=== PATIENT | female | born 1965 | race African-American/Black ===

== ENCOUNTER 2018-05-18 07:37 | Inpatient (IN) | payer BC, OTHER ==
[2018-05-12 12:04] VITALS: BMI 39.2
--- NOTE | 2018-05-14 14:59 | HP ---
Admitting History and Physical - Admission Chief Complaint: left TKR pain x years History of Present Illness: 53 year old female presents today in regard to her left knee. Longstanding history of left knee osteoarthritis. Patient is status post a left total knee replacement. She complains of pain, limited ROM, difficulty ambulating and difficulty with ADLs. Patient has failed conservative treatment measures including PO medication, activity modification, injections and exercise program. Loosening of the prosthesis was confirmed via diagnostic testing. At this point, patient consents to proceed with revision left total knee arthroplasty. History Source: Patient - Past Medical History Cardiovascular: Yes: HTN ...LMP Comment: 2011 - Past Surgical History Additional Past Surgical History: See written history & physical. - Smoking History Smoking history: Never smoked Have you smoked in the past 12 months: No - Alcohol/Substance Use Hx Alcohol Use: No Home Medications - Allergies Allergies/Adverse Reactions: Allergies Allergy/AdvReac Type Severity Reaction Status Date / Time morphine AdvReac Severe Difficulty Verified 06/10/16 06:49 Breathing Latex, Natural Rubber AdvReac Intermediate Rash Verified 06/10/16 06:29 - Home Medications Home Medications: Ambulatory Orders Amlodipine Besylate 10 mg PO DAILY 05/20/16 Diclofenac Sodium [Diclofenac Sodium ER] 100 mg PO DAILY 05/12/18 Hydrocodone/Acetaminophen [Hydrocodone-Acetamin 5-300 mg] 1 each PO ASDIR PRN Review of Systems - Review of Systems Musculoskeletal: reports: Decreased ROM (left knee), Joint Pain (left knee) Physical Examination Constitutional: Yes: Well Nourished, No Distress Eyes: Yes: Conjunctiva Clear HENT: Yes: Atraumatic, Normocephalic Neck: Yes: Supple Cardiovascular: Yes: Regular Rate and Rhythm Respiratory: Yes: Regular Gastrointestinal: Yes: Soft ...Rectal Exam: Yes: Deferred Musculoskeletal: Yes: Joint Stiffness (left knee), Joint Swelling (left knee) Assessment/Plan 53 year old female presents today in regard to her left knee. Longstanding history of left knee osteoarthritis. Patient is status post a left total knee replacement. She complains of pain, limited ROM, difficulty ambulating and difficulty with ADLs. Patient has failed conservative treatment measures including PO medication, activity modification, injections and exercise program. Loosening of the prosthesis was confirmed via diagnostic testing. At this point, patient consents to proceed with revision left total knee arthroplasty. Pros, cons, risks, benefits and alternatives of a revision left total knee arthroplasty was discussed with the patient. Patient confirms her understanding and consents to proceed with a revision left total knee arthroplasty.
[2018-05-18] MEDS ORDERED: TRANEXAMIC ACID 1000 MG/10 ML VIAL IVPUSH ONE (10:30)
[2018-05-18] MEDS ORDERED: CEFAZOLIN 2 GM in DEXTROSE 5%-WATER - 50 ML IVPB ONE (10:30)
[2018-05-18] MEDS ORDERED: ROPIVICAINE 0.2%/MORPH PF/KETOROLAC - 51ML DISP.SYRINGE IA ONE ×4 (10:30→16:05)
[2018-05-18] MEDS ORDERED: MIDAZOLAM HCL 2 MG/2 ML SINGLE DOSE VIAL ONE ×4 (10:31→15:24)
[2018-05-18] MEDS ORDERED: SODIUM CHLORIDE 0.9% P/F 10 ML VIAL IJ ONE (10:32)
[2018-05-18] MEDS ORDERED: BUPIVACAINE LIPOSOME/PF (EXPAREL) 266 MG/20 ML VIAL ONE (10:32)
[2018-05-18] MEDS ORDERED: BUPIVACAINE HCL/PF (5 MG/ML) 30 ML VIAL IJ ONE (10:32)
[2018-05-18] MEDS ORDERED: TRANEXAMIC ACID 1000 MG/10 ML VIAL ONE ×3 (11:10→13:17)
[2018-05-18] MEDS ORDERED: PROPOFOL 20 ML ONE ×5 (11:10→16:19)
[2018-05-18] MEDS ORDERED: ceFAZolin SODIUM 1 GM VIAL ONE ×3 (11:30→16:43)
[2018-05-18] MEDS ORDERED: VANCOMYCIN 1,000 MG VIAL (RESTRICTED TO ID ONLY) ONE (11:30)
[2018-05-18] MEDS ORDERED: BUPIVACAINE HCL/PF 0.5% (5MG/ML) 10 ML VIAL ONE (12:03)
[2018-05-18] MEDS ORDERED: ePHEDrine SULFATE 50 MG/1 ML AMPULE ONE (12:45)
[2018-05-18] MEDS ORDERED: PANTOPRAZOLE 40 MG TABLET (FP) PO ONE (13:00)
[2018-05-18] MEDS ORDERED: oxyCODONE HCL 10 MG SUSTAINED ACTING TABLET PO ONE (13:00)
[2018-05-18] MEDS ORDERED: CELECOXIB 200 MG CAPSULE PO ONE (13:00)
[2018-05-18] MEDS ORDERED: GABAPENTIN 300 MG CAPSULE (FP) PO ONE (13:00)
[2018-05-18] MEDS ORDERED: LIDOCAINE HCL/PF 2% SDV 5ML VIAL ONE ×2 (13:17→16:43)
[2018-05-18] MEDS ORDERED: VANCOMYCIN 1,000 MG VIAL (RESTRICTED TO ID ONLY) IVPB ONE ×2 (13:40→16:04)
[2018-05-18] MEDS ORDERED: TRANEXAMIC ACID 1000 MG/10 ML VIAL IVPB ONE ×2 (13:43→16:05)
[2018-05-18] MEDS ORDERED: ONDANSETRON 4 MG/2 ML VIAL ONE ×2 (16:43→16:57)
[2018-05-18] MEDS ORDERED: DEXAMETHASONE SOD PHOSPHATE 4 MG/1 ML VIAL ONE (16:43)
[2018-05-18] MEDS ORDERED: ACETAMINOPHEN INJECTION 100 ML IVPB ONE (16:54)
[2018-05-18] MEDS ORDERED: ACETAMINOPHEN 1000 MG/100 ML VIAL (NON FORMULARY) IVPB ONE ×2 (16:58→17:25)
--- NOTE | 2018-05-18 16:58 | SURG ---
Surgery Sagger Filler Note Sagger Filler: James Juan PA-C Date of Service: 05/18/18 Diagnosis: Left knee osteoarthritis Procedure: Left knee total arthroplasty revision I was present for the entirety of the operative procedure. For further detail, please refer to operative report.
[2018-05-18] MEDS ORDERED: ONDANSETRON 4 MG/2 ML VIAL IVPUSH PRN ×2 (17:03→17:04)
[2018-05-18] MEDS ORDERED: MAG HYDROX/AL HYDROX/SIMETH 30 ML UNIT-DOSE CUP PO PRN (17:03)
[2018-05-18] MEDS ORDERED: MAGNESIUM HYDROX 2400MG/30ML ORAL SUSPENSION 30 ML CUP PO PRN (17:03)
[2018-05-18] MEDS ORDERED: oxyCODONE HCL 5 MG TABLET PO PRN ×2 (17:04)
[2018-05-18] MEDS ORDERED: PROMETHAZINE HCL 25 MG/1 ML VIAL IVPUSH PRN (17:04)
[2018-05-18] MEDS ORDERED: LACTATED RINGERS SOLUTION 1,000 ML IV SCH (17:15)
[2018-05-18] MEDS ORDERED: KETOROLAC TROMETHAMINE 30 MG/1 ML VIAL ONE (17:40)
[2018-05-18] MEDS ORDERED: traMADol HCL 50 MG TABLET ONE (17:40)
[2018-05-18] MEDS: KETOROLAC TROMETHAMINE 30 MG/1 ML VIAL IVPUSH SCH (17:45)
[2018-05-18] MEDS: traMADol HCL 50 MG TABLET PO SCH (17:50)
--- NOTE | 2018-05-18 17:55 | OP ---
Operative Note - Note: Operative Date: 05/18/18 Pre-Operative Diagnosis: Left knee painful unicompartmental knee repalcement Operation: Revision of partial knee replacement to total knee replacement Post-Operative Diagnosis: Same as Pre-op Surgeon: Alexis Camacho Print Line Tailer: James Juan Anesthesia: Spinal Estimated Blood Loss (mls): 200
[2018-05-18] MEDS: CEFAZOLIN 2 GM/D5W 2 GM/50 ML ML IVPB SCH (18:23)
[2018-05-18] MEDS: CELECOXIB 200 MG CAPSULE PO SCH (21:41)
[2018-05-18] MEDS: ASCORBIC ACID 500 MG TABLET (FP) PO SCH (21:41)
[2018-05-18] MEDS: SENNOSIDES/DOCUSATE COMBO (SENNA PLUS) TABLET (UD) PO SCH (21:41)
[2018-05-18] MEDS: GABAPENTIN 300 MG CAPSULE (FP) PO SCH (21:41)
[2018-05-18] MEDS: oxyCODONE HCL 10 MG SUSTAINED ACTING TABLET PO SCH (21:42)
[2018-05-19] MEDS: KETOROLAC TROMETHAMINE 30 MG/1 ML VIAL IVPUSH SCH ×3 (00:09→11:30)
[2018-05-19] MEDS: traMADol HCL 50 MG TABLET PO SCH ×4 (00:11→16:29)
[2018-05-19] MEDS: ACETAMINOPHEN 325 MG TABLET (FP) PO SCH ×5 (00:11→23:00)
[2018-05-19] MEDS ORDERED: DEXAMETHASONE SOD PHOSPHATE 10 MG/1 ML VIAL IVPB ONE (01:00)
[2018-05-19] MEDS: CEFAZOLIN 2 GM/D5W 2 GM/50 ML ML IVPB SCH ×2 (02:01→09:33)
[2018-05-19 08:05] LABS: HEMATOCRIT 35.4 % (32.4-45.2); HEMOGLOBIN 11.2 GM/dl (10.7-15.3); MCH 27.4 pg (25.7-33.7); MCHC 31.7 g/dl (32.0-36.0); MEAN CELL VOLUME 86.4 fl (80-96); MEAN PLT VOLUME 9.6 fl (7.5-11.1); PLATELET COUNT 186 K/MM3 (134-434); RBC 4.09 M/mm3 (3.60-5.2); RDW 14.7 % (11.6-15.6); WHITE BLOOD COUNT 7.6 K/mm3 (4.0-10.8)
[2018-05-19 08:10] LABS: ANION GAP 7 MMOL/L (8-16); BLOOD UREA NITROGEN 14 mg/dl (7-18); CALCIUM 8.9 mg/dl (8.4-10.2); CHLORIDE 101 mmol/L (98-107); CO2 26 mmol/L (22-28); CREATININE 0.7 mg/dl (0.6-1.3); GLUCOSE,RANDOM 147 mg/dl (74-106); POTASSIUM 3.9 mmol/L (3.5-5.1); SODIUM 134 mmol/L (136-145)
[2018-05-19] MEDS: SENNOSIDES/DOCUSATE COMBO (SENNA PLUS) TABLET (UD) PO SCH ×2 (09:33→21:08)
[2018-05-19] MEDS: oxyCODONE HCL 10 MG SUSTAINED ACTING TABLET PO SCH ×2 (09:33→21:08)
[2018-05-19] MEDS: MULTIVITAMINS (DAILY MVI) TABLET (FP) PO SCH (09:33)
[2018-05-19] MEDS: GABAPENTIN 300 MG CAPSULE (FP) PO SCH ×2 (09:33→21:08)
[2018-05-19] MEDS: CELECOXIB 200 MG CAPSULE PO SCH ×2 (09:33→21:08)
[2018-05-19] MEDS: ASCORBIC ACID 500 MG TABLET (FP) PO SCH ×2 (09:33→21:08)
[2018-05-19] MEDS: PANTOPRAZOLE 40 MG TABLET (FP) PO SCH (09:35)
[2018-05-19] MEDS: amLODIPine BESYLATE 10 MG TABLET (FP) PO SCH (09:35)
[2018-05-19] MEDS: ASPIRIN 325 MG ENTERIC COATED TABLET (FP) PO SCH (10:00)
--- NOTE | 2018-05-19 13:01 | PN ---
Progress Note (short form) - Note Progress Note: 53F POD1 s/p revision left TKR under spinal anesthetic with nerve blocks for post operative pain relief. Pt states that pain is well controlled and reports no anesthetic complications. AVSS. Motor and sensory function intact in bilateral lower extremities. Continue current regimen.
[2018-05-20] MEDS: traMADol HCL 50 MG TABLET PO SCH ×3 (05:55→12:02)
[2018-05-20] MEDS: ACETAMINOPHEN 325 MG TABLET (FP) PO SCH ×2 (05:56→12:03)
[2018-05-20 08:24] LABS: HEMOGLOBIN 10.4 GM/dl (10.7-15.3); MCH 28.1 pg (25.7-33.7); MCHC 32.7 g/dl (32.0-36.0); MEAN CELL VOLUME 86.2 fl (80-96); MEAN PLT VOLUME 10.2 fl (7.5-11.1); PLATELET COUNT 170 K/MM3 (134-434); RDW 14.2 % (11.6-15.6)
[2018-05-20 09:16] VITALS: BP 131/65; PULSE 75; TEMP 97.6
[2018-05-20] MEDS: ASPIRIN 325 MG ENTERIC COATED TABLET (FP) PO SCH (09:17)
[2018-05-20] MEDS: GABAPENTIN 300 MG CAPSULE (FP) PO SCH (09:17)
[2018-05-20] MEDS: MULTIVITAMINS (DAILY MVI) TABLET (FP) PO SCH (09:17)
[2018-05-20] MEDS: SENNOSIDES/DOCUSATE COMBO (SENNA PLUS) TABLET (UD) PO SCH (09:17)
[2018-05-20] MEDS: amLODIPine BESYLATE 10 MG TABLET (FP) PO SCH (09:17)
[2018-05-20] MEDS: ASCORBIC ACID 500 MG TABLET (FP) PO SCH (09:17)
[2018-05-20] MEDS: CELECOXIB 200 MG CAPSULE PO SCH (09:17)
[2018-05-20] MEDS: PANTOPRAZOLE 40 MG TABLET (FP) PO SCH (09:17)
[2018-05-20] MEDS: oxyCODONE HCL 10 MG SUSTAINED ACTING TABLET PO SCH (09:21)
--- NOTE | 2018-05-20 13:11 | DS ---
Physical Examination Vital Signs: Vital Signs Temperature 97.6 F 05/20/18 09:15 Pulse Rate 75 05/20/18 09:15 Respiratory Rate 18 05/20/18 09:15 Blood Pressure 131/65 05/20/18 09:15 O2 Sat by Pulse Oximetry (%) 99 05/20/18 06:00 Labs: CBC, BMP 05/20/18 06:50 05/19/18 07:32 Discharge Summary Reason For Visit: MECHANICAL LOOSENING OF INTERNAL LT KN PROSTHESI Procedures: Principal: left knee revision of partial to total knee replacement Hospital Course: Admitted for elective surgery. Procedure performed without complications. Pt received postoperative antibiotic prophylaxis and DVT ppx. Ambulated with physical therapy. Stable for discharge home with outpatient followup. Condition: Stable - Instructions Diet, Activity, Other Instructions: Dr. Camacho - Knee Replacement Instructions Keep the Aquacel dressing on until removed by Dr. Camacho in 10-14 days - it is antibacterial and waterproof and you can shower with it on. Call the office for a follow-up appointment with Dr. Camacho in 10-14 days. [phone] Take one Aspirin 325mg daily for 6 weeks to prevent blood clots in your legs. Take one Pantoprazole 40mg daily for 6 weeks to protect against heartburn and ulcers. Take Cephalexin (antibiotic) 3x/day for 10 days to help prevent skin infection. Take Celebrex 200mg twice daily for 30 days to reduce swelling and inflammation. Take a multivitamin, stool softener, and extra Vitamin C supplement daily. For pain: *Mild pain (1-3/10): Take 1 Tramadol tablet every 4 hours as needed. Moderate pain (4-6/10): Take 1 Tramadol tablet and 1 Percocet tablet every 4 hours as needed. Severe pain (7-10/10): Take 1 Tramadol tablet and 2 Percocet tablets every 4 hours as needed. Activity: You can put as much weight on the operative leg as you want. Right after you get home, there will be a physical therapist coming to your house to help you walk around and bend/straighten your knee. After your follow-up appointment, you will be sent for more intensive outpatient physical therapy which will include machines and equipment that the home therapist cannot bring to your house. Always use a walker or cane for balance and to prevent falls. Expect to see swelling/bruising from the operative site all the way down to your toes. Wear the compression stocking on the operative side during the day to minimize how much swelling there is in your foot/ankle. Don't wear the stocking at night. You don't have to wear a stocking on the other side. Disposition: VNS/HOME HEALTH CARE - Home Medications Comprehensive Discharge Medication List: Ambulatory Orders Amlodipine Besylate 10 mg PO DAILY 05/20/16 Ascorbic Acid [Vitamin C -] 500 mg PO BID tablet 05/20/18 Aspirin Coated [Ecotrin -] 325 mg PO DAILY tablet. 05/20/18 Celecoxib [CeleBREX -] 200 mg PO BID #60 capsule 05/20/18 Cephalexin Monohydrate [Keflex -] 500 mg PO TID #30 capsule 05/20/18 Multivitamins [Multivit ([facility] Formul[facility])] 1 tab PO DAILY tab 05/20/18 Oxycodone HCl/Acetaminophen [Percocet 5-325 mg Tablet] 1 - 2 tab PO Q4H PRN #60 tablet MDD 10 05/20/18 Pantoprazole Sodium [Protonix -] 40 mg PO DAILY #40 tablet.ec 05/20/18 Sennosides/Docusate Sodium [Pericolace -] 1 tablet PO BID tablet 05/20/18 traMADol HCL [Ultram -] 50 mg PO Q4H PRN #60 tablet MDD 6 05/20/18
--- NOTE | 2018-05-20 16:58 | PATH ---
Surgical Pathology Report Patient Name: SERGIO GOINS Med. Rec. #: [id number] /Age/Gender: 1965 (Age: 53) / F Account: [id number] Location: [facility] MED-SURG Taken: 05/18/2018 Received: 05/18/2018 Reported: 05/20/2018 Physicians: Alexis Camacho M.D. 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 BONE, KNEE, LEFT, REVISION OF PARTIAL KNEE TO TOTAL KNEE REPLACEMENT MAKOPLASTY: BONE WITH DEGENERATIVE JOINT DISEASE. B. HARDWARE, KNEE EXPLANT, LEFT, REMOVAL: SURGICAL HARDWARE. MACROSCOPIC DIAGNOSIS. Electronically Signed Faiza Colunga M.D. Gross Description A. Received in formalin labeled "left knee bones," is a 9.5 x 7.0 x 2.0 cm aggregate of multiple portions of bone and soft tissue, consistent with knee bones. No areas of eburnation are identified. The articular surfaces are davidson-yellow and diffusely granular. The underlying trabecular bone is yellow and hard. Marine Firer sections are submitted in one cassette, following decalcification. B. Received fresh labeled "left knee explant," are 3 portions of white plastic and wheeler metallic hardware, consistent with a knee explant. The specimens range from 4.0-5.0 cm in greatest dimension. No soft tissue is present. No sections are submitted, gross only. /05/19/201805/19/2018
--- NOTE | 2018-05-20 19:26 | PN ---
Progress Note (short form) - Note Progress Note: Pt seen and examined. Doing well. AVSS Selected Entries 05/20/18 05/20/18 06:00 09:15 Temperature 97.6 F Pulse Rate 75 Respiratory 18 Rate Blood Pressure 131/65 O2 Sat by Pulse 99 Oximetry (%) Oxygen Delivery Room Air Method Laboratory Tests 05/19/18 05/19/18 05/20/18 07:32 07:32 06:50 WBC 7.6 12.0 H Hgb 11.2 10.4 L Hct 35.4 32.0 L Plt Count 186 170 Sodium 134 L Potassium 3.9 Chloride 101 Carbon Dioxide 26 Anion Gap 7 L BUN 14 Creatinine 0.7 Creat Clearance w eGFR > 60 Random Glucose 147 H Calcium 8.9 Gen: NAD LLE: c/d/i, NVID A/P s/p revision of left PKA to CAMERON TKA PT/OOB D/C home today.
--- NOTE | 2018-07-08 10:52 | OP ---
DATE OF OPERATION: 05/18/2018 PREOPERATIVE DIAGNOSIS: Left knee partial knee replacement, aseptic loosening. POSTOPERATIVE DIAGNOSIS: Left knee partial knee replacement, aseptic loosening. PROCEDURE: Left partial knee replacement to total knee replacement with Makoplasty robotic navigation. ATTENDING: Krishan Irvin MD TANK TRUCK LOADER: ROMIE Nolan ANESTHESIA: Spinal plus sedation. ESTIMATED BLOOD LOSS: 200 mL. COMPLICATIONS: None. DISPOSITION: The patient was transferred to the PACU in stable condition. INDICATIONS: This is a 53-year-old female who presented initially with severe degenerative changes of the left knee. She was initially treated nonoperatively but continued to severe pain and ambulatory dysfunction and therefore was indicated for a left knee partial knee replacement as all of her arthritis and pain was localized. She did well initially postop but continued to have severe pain which worsened over time. Further imaging studies revealed aseptic loosening of the components and bone marrow edema in both the femur and tibia. These findings were discussed with the patient and elected to perform a complete revision to a total knee replacement with Makoplasty robotic navigation. The risks, benefits, and alternatives to the procedure were explained to the patient in great detail, and the patient desired to have the procedure performed. On the day of surgery, the patient was taken to the operating room and placed on the OR table. Spinal anesthesia was administered by the anesthesiologist. The patient was then positioned supine on the table, and all bony prominences were padded. A tourniquet was placed on the proximal thigh. The knee was then prepped and draped in the usual sterile fashion, and intravenous antibiotics were given for infection prophylaxis. A surgical timeout was then performed with the team, and the patient's identity, procedure, side, availability of implants, and the administration of antibiotics was confirmed. With the knee flexed, a midline incision was made and carried down through the subcutaneous fat to the underlying retinaculum. This incision incorporated the previous partial knee replacement incision scar. A medial parapatellar arthrotomy was performed. This was followed by a subperiosteal dissection of the tissue off the proximal medial tibia. A portion of fat pad and the scar tissue was removed from under the patellar tendon which was found to be somewhat fibrotic and thickened. A small portion of the fat and scar tissue was excised off the distal supracondylar femur as well. Additional arthrolysis was performed as scar tissue was removed using electrocautery and sharp dissection to reestablish the medial and lateral gutters. The knee was flexed further, and the polyethylene insert was removed to create space to work and to provide greater visualization of the components. Wing retractors were then placed around the distal femur. Flexible osteotomes were used to separate the femoral component from the underlying bone taking care to preserve as much bone stock as possible. Attention was then turned to the tibia, Wing retractors were again used to retract the collateral ligaments and provide visualization of the components. Flexible osteotomes were again used to separate the tibial component from the underlying bone, and it was removed without significant damage to the underlying bone stock. In preparation for the Makoplasty robotic navigation, femoral and tibial checkpoints were then placed in the appropriate location using a mallet. Two parallel bicortical self-drilling pins were placed in the tibial diaphysis after making stab incisions and bluntly dissecting down to bone. Two pins were then placed in the distal supracondylar femur. The CAMERON navigation arrays were then attached to both the femoral and tibial pins, and the lower extremity was then registered to the robotic navigation device using various joint movements, as well as inputting several dozen reference points. The knee was then taken through a full range of motion with a corrective force applied, alignment in varus/valgus as well as flexion/extension, and soft tissue balance was measured in various positions. The navigation device showed a numerical and graphic representation of the soft tissue balance. The components were finely repositioned virtually using the software until optimal soft tissue balance was achieved on screen. Once this was accomplished, the final plan was saved and sent to the robot. Self-retractors were then placed at the joint line for exposure and protection of the collateral ligaments. The robot was brought into the sterile field and registered with the navigation device. The robotic arm with attached oscillating saw was then used to perform femoral and tibial bone cuts as per the saved software plan. The femoral box cut was made using the appropriately sized manual cutting guide. The knee was then irrigated. Trial components were placed, and the knee was taken through a full range of motion to assess soft tissue balance and alignment. The range of motion was found to be excellent, and the soft tissue balance was optimal and according to plan. The knee was then put into extension, and the patella everted. The synovium around the patella was circumscribed with electrocautery. A caliber was used to measure the patellar thickness, and a saw was then used to resect the patella at the chondro-osseous junction. The cut surface was then sized and drilled for the appropriate patellar button with care taken to medialize it. A trial patella was then placed, and the knee was again taken through a full range of motion. The knee was found to have both good balance and good patellar tracking. All the components were removed except for the tibial base plates. The appropriate instrumentation was used to drill and punch the proximal tibia for the keel and stem of the final component. All bony surfaces were then cleaned with pulsatile lavage and dried. Comprehensive [employer] Triathlon knee replacement components were then impacted in place and cemented using standard cement technique. All extruded cement was removed. A trial polyethylene component was placed, and the knee was put into extension for axial compression as the cement hardened. The patellar button was similarly cemented in place, and extruded cement was removed. Once the cement had hardened, the knee was taken through a full range of motion to assess stability, balance, and patellar tracking. These were found to be optimal, and the trial polyethylene was exchanged for the appropriately sized real implant. All checkpoints and Edda pins and arrays were removed. The tip of the tibial checkpoint did break off while it was being removed and this was buried deep within the bone so it was left in place as it did not interfere with the function of the knee and any attempted removal would require drilling and coring the proximal tibial bone leading to damage. The wounds were then thoroughly irrigated with normal saline. A 3-minute dilute Betadine lavage was performed. Following this, the knee was again thoroughly irrigated with a pulsatile lavage device. A periarticular injection was used to locally infiltrate the capsular tissues surrounding the implant and prosthesis. A No. 1 Polysorb and No. 0 V-Howard 180 barbed sutures were used to close the arthrotomy. No. 1 Polysorb and 2-0 V-Howard 90 sutures were used in the subcutaneous tissues. Vicryl 4-0 and Dermabond skin adhesive was used to close the stab incisions made for the navigation pins. The skin was closed using both 3-0 V-Howard 90 suture in a running subcuticular fashion and Dermabond skin adhesive. Once this was completed, a sterile Aquacel dressings and compressive Jose wrap were applied. The patient was then awakened and take to the PACU in stable condition. KRISHAN IRVIN M.D. MISA/[id number]
== END 2018-05-20 14:22 | disposition home health service (06) | DRG 302 ==
LOC: FM/S 07:37
PROVIDERS: ADMIT Student in an Organized Health Care Education/Training Program; ATTEND Student in an Organized Health Care Education/Training Program
PROC: 0SRD0JZ Replacement of Left Knee Joint with Synthetic Substitute, Open Approach (ICD-10-PCS; 2018-05-18)
PROC: 0SPD0JZ Removal of Synthetic Substitute from Left Knee Joint, Open Approach (ICD-10-PCS; principal; 2018-05-18 10:30)
DX: T84.033A Mechanical loosening of internal left knee prosthetic joint, initial encounter (principal); Y83.8 Other surgical procedures as the cause of abnormal reaction of the patient, or of later complication, without mention of misadventure at the time of the procedure; I10 Essential (primary) hypertension
CPT/HCPCS: 36415; 73560-TC-LT-FY; 80048; 85027; 88300-TC; 88304-TC; 88311-TC; 94760; 97116-GP; 97162-GP; J0131; J1100

== ENCOUNTER 2018-05-25 10:46 | Emergency (ER) | payer OTHER ==
--- NOTE | 2018-05-25 11:01 | PDOC ---
History of Present Illness - General Chief Complaint: Nausea/Vomiting Stated Complaint: VOMITING Time Seen by Provider: 05/25/18 10:55 History Source: Patient (Patient walked in along with complaining of nausea and vomiting since 5 days ago when she was discharged from the hospital for knee surgery. She had a bad reaction nausea and vomiting after Vicoden was prescribed, for which she stopped it.) Exam Limitations: No Limitations - History of Present Illness Severity: mild, moderate Modifying Factors: improves with: rest Associated Symptoms: reports: malaise, nausea/vomiting Past History - Travel Traveled outside of the country in the last 30 days: No Close contact w/someone who was outside of country & ill: No - Past Medical History Allergies/Adverse Reactions: Allergies Allergy/AdvReac Type Severity Reaction Status Date / Time morphine AdvReac Severe Difficulty Verified 05/25/18 10:47 Breathing Latex, Natural Rubber AdvReac Intermediate Rash Verified 05/25/18 10:47 Home Medications: Ambulatory Orders Amlodipine Besylate 10 mg PO DAILY 05/20/16 Ascorbic Acid [Vitamin C -] 500 mg PO BID tablet 05/20/18 Aspirin Coated [Ecotrin -] 325 mg PO DAILY tablet. 05/20/18 Celecoxib [CeleBREX -] 200 mg PO BID #60 capsule 05/20/18 Cephalexin Monohydrate [Keflex -] 500 mg PO TID #30 capsule 05/20/18 Multivitamins [Multivit ([facility] Formulary)] 1 tab PO DAILY tab 05/20/18 Oxycodone HCl/Acetaminophen [Percocet 5-325 mg Tablet] 1 - 2 tab PO Q4H PRN #60 tablet MDD 10 05/20/18 Pantoprazole Sodium [Protonix -] 40 mg PO DAILY #40 tablet.ec 05/20/18 Sennosides/Docusate Sodium [Pericolace -] 1 tablet PO BID tablet 05/20/18 traMADol HCL [Ultram -] 50 mg PO Q4H PRN #60 tablet MDD 6 05/20/18 Ondansetron [Ondansetron Odt] 8 mg PO TID #14 tab.rapdis 05/25/18 Anemia: No Asthma: No Cancer: No Cardiac Disorders: No CVA: No COPD: No CHF: No Dementia: No Diabetes: No GI Disorders: No Disorders: No HTN: Yes Hypercholesterolemia: No Liver Disease: No Seizures: No Thyroid Disease: No - Surgical History Abdominal Surgery: No Appendectomy: No Cardiac Surgery: No Cholecystectomy: No Lung Surgery: No Neurologic Surgery: No Orthopedic Surgery: Yes (gillian knee arthroscopy,2016 LEFT PARTIAL KNEE REPLACEMENT ) - Suicide/Smoking/Psychosocial Hx Smoking History: Never smoked Have you smoked in the past 12 months: No Hx Alcohol Use: No Drug/Substance Use Hx: No Substance Use Type: None Hx Substance Use Treatment: No Review of Systems - Review of Systems Able to Perform ROS?: Yes Is the patient limited Amharic proficient: Yes Constitutional: Yes: Symptoms Reported, Malaise HEENTM: No: Symptoms Reported, See HPI, Eye Pain, Blurred Vision, Tearing, Recent change in vision, Double Vision, Cataracts, Ear Pain, Ocular Prothesis, Ear Discharge, Nose Pain, Nose Congestion, Tinnitus, Nose Bleeding, Hearing Loss , Throat Pain, Throat Swelling, Mouth Pain, Dental Problems, Difficulty Swallowing, Mouth Swelling, Other Respiratory: No: Symptoms reported, See HPI, Cough, Orthopnea, Shortness of Breath, SOB with Exertion, SOB at Rest, Stridor, Wheezing, Productive cough, Hemoptysis, Other Cardiac (ROS): No: Symptoms Reported, See HPI, Chest Pain, Edema, Irregular Heart Rate, Lightheadedness, Palpitations, Syncope, Chest Tightness, Other ABD/GI: No: Symptoms Reported, See HPI, Abdominal Distended, Abd. Pain w/ defecation, Blood Streaked Bowels, Constipated, Diarrhea, Difficulty Swallowing , Nausea, Poor Appetite, Poor Fluid Intake, Rectal Bleeding, Vomiting, Indigestion, Abdominal cramping, Tarry Stools, Other Musculoskeletal: Yes: Symptoms Reported, See HPI Integumentary: No: Symptoms Reported, See HPI, Bruising, Change in Color, Change in Hair/Nails, Dryness, Erythema, Flushing, Lesions, Lumps, Pallor, Pruritus, Rash, Sweating, Other Neurological: No: Symptoms reported, See HPI, Headache, Numbness, Paresthesia, Pre-Existing Deficit, Seizure, Tingling, Tremors, Weakness, Unsteady Gait, Ataxia, Dizziness, Other Psychiatric: No: Anxiety, Depression, Frequent Crying, Stressors, Sleep Pattern Change, Emotional Problems, Mood Swings, Change in Appetite, Other Endocrine: No: Symptoms Reported, See HPI, Excessive Sweating, Flushing, Intolerance to Cold, Intolerance to Heat, Increased Hunger, Increased Thirst, Increased Urine, Unexplained Weight Gain, Unexplained Weight Loss, Change in Weight, Other Hematologic/Lymphatic: No: Symptoms Reported, See HPI, Anemia, Blood Clots, Easy Bleeding, Easy Bruising, Bleeding Diathesis, Lymph Node Abnormalities, Swollen Glands, Other All Other Systems: Reviewed and Negative *Physical Exam - Physical Exam General Appearance: Yes: Nourished, Appropriately Dressed, Moderate Distress HEENT: positive: VAIBHAV Neck: positive: Supple Respiratory/Chest: positive: Lungs Clear Cardiovascular: positive: Regular Rate, S1, S2 Musculoskeletal: positive: Normal Inspection Extremity: positive: Normal Capillary Refill, Normal Inspection Integumentary: positive: Normal Color, Dry Neurologic: positive: Fully Oriented, Alert, Normal Mood/Affect Heart Score/ECG Review - Age Age: 45-65 - Risk Factors Risk Factors Heart Score: Yes Hx Hypertension - ECG Intrepretation Rhythm: Regular Rhythm Comment:: 05/25/18 13:52 rate 75 /min - [place]: Normal - ECG Impressions Normal ECG: Yes ED Treatment Course - LABORATORY CBC & Chemistry Diagram: 05/25/18 11:23 05/25/18 11:23 Medical Decision Making - Medical Decision Making Patient seen mmediately from arrival Examined , tests oredered patient received 2000ml iv fluids & Zofran iv Observed every hour by the hour, improving progressively Observed for 3 hours 05/25/18 13:53 *DC/Admit/Observation/Transfer Diagnosis at time of Disposition: Vomiting in adult - Discharge Dispostion Disposition: HOME Condition at time of disposition: Improved Decision to Admit order: No - Referrals Referrals: Alexis Camacho MD [Staff Physician] - - Patient Instructions Printed Discharge Instructions: DI for Nausea -- Adult, DI for Vomiting -- Adult Additional Instructions: Follow up with your doctor. Do not take any strong pain medication because of potential side effects. Callyour doctor or return to ER if symptoms persist. take medication as prescribed for nausea - Post Discharge Activity
[2018-05-25] MEDS ORDERED: ONDANSETRON 4 MG/2 ML VIAL IVPUSH ONE (11:03)
[2018-05-25] MEDS ORDERED: SODIUM CHLORIDE 1,000 ML IV STA (11:03)
[2018-05-25] MEDS ORDERED: ONDANSETRON 4 MG/2 ML VIAL ONE (11:20)
[2018-05-25 11:34] LABS: PH,URINE 5.5 (4.5-8); URINE APPEARANCE Clear; URINE BILIRUBIN 1+ (NEGATIVE); URINE COLOR Yellow; URINE GLUCOSE (UA) Negative (NEGATIVE); URINE KETONE 1+ (NEGATIVE); URINE LEUK ESTERASE Negative (NEGATIVE); URINE NITRITE Negative (NEGATIVE); URINE PROTEIN 1+ (NEGATIVE)
[2018-05-25 11:39] VITALS: BP 154/81; PULSE 86; TEMP 98.3; BMI 41.1
[2018-05-25 12:11] LABS: ALBUMIN 3.2 g/dl (3.5-5.0); ALK PHOS 55 U/L (32-92); AMYLASE 47 U/L (25-125); ANION GAP 7 MMOL/L (8-16); BILIRUBIN,TOTAL 0.5 mg/dl (0.2-1.0); BLOOD UREA NITROGEN 8 mg/dl (7-18); CALCIUM 8.7 mg/dl (8.4-10.2); CHLORIDE 100 mmol/L (98-107); CO2 27 mmol/L (22-28); CREATININE 0.6 mg/dl (0.6-1.3); GLUCOSE,RANDOM 100 mg/dl (74-106); POTASSIUM 3.8 mmol/L (3.5-5.1); SGOT/AST 19 U/L (10-42); SGPT/ALT 15 U/L (10-40); SODIUM 134 mmol/L (136-145); TOT PROT 6.9 g/dl (6.4-8.3)
[2018-05-25 12:18] LABS: EPI CELLS 2+ /HPF; URINE HYALINE CAST 0-1 /lpf; URINE RBC 0-2 /hpf (0-3); URINE WBC 0-2 (0-5)
[2018-05-25 12:30] LABS: BASO % 0.3 % (0-2.0); EOS % 2.5 % (0-4.5); HEMATOCRIT 31.5 % (32.4-45.2); HEMOGLOBIN 10.1 GM/dl (10.7-15.3); LYMPH % 21.4 % (8-40); MCH 27.3 pg (25.7-33.7); MEAN CELL VOLUME 85.4 fl (80-96); MEAN PLT VOLUME 9.3 fl (7.5-11.1); MONO % 13.1 % (3.8-10.2); NEUT % 62.7 % (42.8-82.8); PLATELET COUNT 233 K/MM3 (134-434); RDW 14.3 % (11.6-15.6); WHITE BLOOD COUNT 6.6 K/mm3 (4.0-10.8)
[2018-05-25 13:38] LABS: LIPASE 60 U/L (73-393)
--- NOTE | 2018-05-26 16:13 | EKG ---
Test Reason : Blood Pressure : / mmHG Vent. Rate : 075 BPM Atrial Rate : 075 BPM P-R Int : 128 ms QRS Dur : 088 ms QT Int : 384 ms P-R-T Axes : 050 040 027 degrees QTc Int : 428 ms NORMAL SINUS RHYTHM NONSPECIFIC T WAVE ABNORMALITY ABNORMAL ECG NO PREVIOUS ECGS AVAILABLE Confirmed by MD Mami, Riki ([id number]) on 05/26/2018 4:12:54 PM Referred By: JONATHAN NAM Confirmed By:Riki Bolaños MD
== END 2018-05-25 14:46 | disposition home or self-care (01) ==
LOC: FER 10:46
PROC: 3E033GC Introduction of Other Therapeutic Substance into Peripheral Vein, Percutaneous Approach (ICD-10-PCS; principal; 2018-05-25)
PROC: 3E0337Z Introduction of Electrolytic and Water Balance Substance into Peripheral Vein, Percutaneous Approach (ICD-10-PCS; 2018-05-25)
DX: R11.10 Vomiting, unspecified (principal); I10 Essential (primary) hypertension
CPT/HCPCS: 36415; 76705-TC; 80053; 81003; 81015; 82150; 83690; 85025; 93005; 99282-25; J7030

== ENCOUNTER 2022-03-13 08:12 | Day surgery (SDC) | payer OTHER ==
[2022-03-13 09:13] VITALS: BP 126/75; PULSE 94; RESP 18; TEMP 97.8; BMI 41.1
== END 2022-03-13 11:43 | disposition home or self-care (01) ==
LOC: FASUSAT 08:12 → EDSTATUS 10:30 → FASUSAT 11:43
PROVIDERS: ATTEND Orthopaedic Surgery Orthopaedic Surgery of the Spine
PROC: 0SPD0JZ Removal of Synthetic Substitute from Left Knee Joint, Open Approach (ICD-10-PCS; principal; 2022-03-13)
PROC: 0SRD0J9 Replacement of Left Knee Joint with Synthetic Substitute, Cemented, Open Approach (ICD-10-PCS; 2022-03-13)
DX: Z53.8 Procedure and treatment not carried out for other reasons (principal); M17.12 Unilateral primary osteoarthritis, left knee

== ENCOUNTER 2022-03-20 06:06 | Inpatient (IN) | payer OTHER ==
[2022-03-20 07:21] VITALS: BMI 41.1
[2022-03-20] MEDS ORDERED: FENTANYL CITRATE/PF 50 MCG/ML VIAL ONE ×4 (07:47→14:30)
[2022-03-20] MEDS ORDERED: MIDAZOLAM HCL 2 MG/2 ML SINGLE DOSE VIAL ONE ×2 (07:48→11:23)
[2022-03-20] MEDS ORDERED: PROPOFOL 1,000,000 MCG/100 ML VIAL ONE (07:48)
[2022-03-20] MEDS ORDERED: ceFAZolin SODIUM 1 GM VIAL ONE ×2 (08:51→12:13)
[2022-03-20] MEDS ORDERED: TRANEXAMIC ACID 1000 MG/10 ML VIAL ONE ×2 (08:52→12:13)
[2022-03-20] MEDS ORDERED: VANCOMYCIN 1,000 MG VIAL (RESTRICTED TO ID ONLY) ONE (09:15)
[2022-03-20] MEDS ORDERED: PROPOFOL 20 ML ONE ×5 (11:01→13:09)
[2022-03-20] MEDS ORDERED: PROPOFOL 40 ML ONE (11:27)
[2022-03-20] MEDS ORDERED: ONDANSETRON 4 MG/2 ML VIAL IVPUSH PRN ×2 (13:55→14:33)
[2022-03-20] MEDS ORDERED: oxyCODONE HCL 5 MG TABLET PO PRN (13:55)
[2022-03-20] MEDS ORDERED: ACETAMINOPHEN 500 MG TABLET (FP) PO SCH (14:00)
[2022-03-20] MEDS: KETOROLAC TROMETHAMINE 30 MG/1 ML VIAL IVPUSH SCH ×2 (14:20→21:32)
[2022-03-20] MEDS: oxyCODONE HCL 10 MG SUSTAINED ACTING TABLET PO SCH ×3 (14:23→16:07)
[2022-03-20] MEDS ORDERED: MAGNESIUM HYDROX 2400MG/30ML ORAL SUSPENSION 30 ML CUP PO PRN (14:33)
[2022-03-20] MEDS ORDERED: MAG HYDROX/AL HYDROX/SIMETH 30 ML UNIT-DOSE CUP PO PRN (14:33)
[2022-03-20] MEDS ORDERED: LACTATED RINGERS SOLUTION 1,000 ML IV SCH (14:45)
[2022-03-20] MEDS: oxyCODONE HCL 5 MG TABLET PO PRN ×2 (16:04→19:37)
[2022-03-20] MEDS: CEFAZOLIN SODIUM 2 GM in DEXTROSE 5%-WATER 100 ML IVPB SCH (19:37)
[2022-03-20] MEDS: ACETAMINOPHEN 500 MG TABLET (FP) PO SCH (21:32)
[2022-03-20] MEDS: SENNOSIDES/DOCUSATE COMBO (SENNA PLUS) TABLET (UD) PO SCH (21:33)
[2022-03-20] MEDS: CELECOXIB 200 MG CAPSULE PO SCH (21:33)
[2022-03-20] MEDS: ASPIRIN COATED 81 MG TABLET.EC PO SCH (21:33)
[2022-03-21] MEDS: CEFAZOLIN SODIUM 2 GM in DEXTROSE 5%-WATER 100 ML IVPB SCH ×2 (00:46→06:26)
[2022-03-21] MEDS: oxyCODONE HCL 10 MG SUSTAINED ACTING TABLET PO SCH ×2 (02:00→14:37)
[2022-03-21] MEDS: ACETAMINOPHEN 500 MG TABLET (FP) PO SCH ×4 (02:01→20:29)
[2022-03-21] MEDS: oxyCODONE HCL 5 MG TABLET PO PRN (06:26)
[2022-03-21 09:12] LABS: CALCIUM 8.2 mg/dl (8.5-10); CREATININE 0.8 mg/dl (0.55-1.3)
[2022-03-21 09:42] LABS: HEMATOCRIT 31.7 % (32.4-45.2); HEMOGLOBIN 10.5 G/dL (10.7-15.3); MCH 27.9 pg (25.7-33.7); MEAN CELL VOLUME 84.8 fl (80-96); MEAN PLT VOLUME 9.8 fl (7.5-11.1); PLATELET COUNT 150.5 10^3/uL (134-434); RBC 3.74 10^6/uL (3.60-5.2); RDW 15.1 % (11.6-15.6); WHITE BLOOD COUNT 7.8 10^3/uL (4.0-10.8)
[2022-03-21] MEDS: SENNOSIDES/DOCUSATE COMBO (SENNA PLUS) TABLET (UD) PO SCH ×2 (09:58→21:29)
[2022-03-21] MEDS: NIFEdipine E.R 60 MG TABLET PO SCH (10:00)
[2022-03-21] MEDS: ASPIRIN COATED 81 MG TABLET.EC PO SCH ×2 (10:00→21:29)
[2022-03-21] MEDS: CELECOXIB 200 MG CAPSULE PO SCH ×2 (10:00→21:29)
[2022-03-21] MEDS: PANTOPRAZOLE 40 MG TABLET PO SCH (10:01)
[2022-03-21 11:22] LABS: CHOLESTEROL 186 mg/dl (50-200); HDL CHOLESTEROL 56 mg/dl (40-60); LDL CHOLESTEROL (ONLY DFH) 113 mg/dl (5-100); TRIGLYCERIDES 85 mg/dl (0-150)
[2022-03-21 22:30] VITALS: RESP 18
[2022-03-22] MEDS: ACETAMINOPHEN 500 MG TABLET (FP) PO SCH (03:11)
[2022-03-22] MEDS: oxyCODONE HCL 10 MG SUSTAINED ACTING TABLET PO SCH (03:11)
[2022-03-22 06:40] VITALS: BP 133/68; PULSE 85; TEMP 98.2
[2022-03-22 08:53] LABS: ALBUMIN 2.9 g/dl (3.4-5.0); BILIRUBIN,TOTAL 0.9 mg/dl (0.2-1); CALCIUM 8.2 mg/dl (8.5-10); CREATININE 0.8 mg/dl (0.55-1.3); TOT PROT 6.4 g/dl (6.4-8.2)
[2022-03-22] MEDS: CELECOXIB 200 MG CAPSULE PO SCH (09:30)
[2022-03-22] MEDS: ASPIRIN COATED 81 MG TABLET.EC PO SCH (09:31)
[2022-03-22] MEDS: SENNOSIDES/DOCUSATE COMBO (SENNA PLUS) TABLET (UD) PO SCH (09:31)
[2022-03-22] MEDS: PANTOPRAZOLE 40 MG TABLET PO SCH (09:31)
[2022-03-22] MEDS: NIFEdipine E.R 60 MG TABLET PO SCH (09:31)
[2022-03-22 09:50] LABS: HEMATOCRIT 27.6 % (32.4-45.2); MCH 27.7 pg (25.7-33.7); MCHC 32.7 g/dl (32.0-36.0); MEAN CELL VOLUME 84.7 fl (80-96); MEAN PLT VOLUME 10.2 fl (7.5-11.1); PLATELET COUNT 119 10^3/uL (134-434); RBC 3.26 M/mm3 (3.60-5.2); RDW 15.6 % (11.6-15.6); WHITE BLOOD COUNT 7.7 K/mm3 (4.0-10.0)
[2022-03-22 10:05] LABS: BASO % 0.3 % (0-2.0); EOS % 2.2 % (0-4.5); LYMPH % 18.5 % (8-40); MONO % 13.8 % (3.8-10.2); NEUT % 65.2 % (42.8-82.8)
== END 2022-03-22 13:34 | disposition home or self-care (01) | DRG 302 ==
LOC: FASUSAT 06:06 → FM/S 14:33 → FASUSAT 20:06
PROVIDERS: ADMIT Orthopaedic Surgery Orthopaedic Surgery of the Spine; ATTEND Orthopaedic Surgery Orthopaedic Surgery of the Spine
PROC: 0SRD0J9 Replacement of Left Knee Joint with Synthetic Substitute, Cemented, Open Approach (ICD-10-PCS; 2022-03-20)
PROC: 0S9D0ZX Drainage of Left Knee Joint, Open Approach, Diagnostic (ICD-10-PCS; 2022-03-20)
PROC: 0SBD0ZX Excision of Left Knee Joint, Open Approach, Diagnostic (ICD-10-PCS; 2022-03-20)
PROC: 0SPD0JZ Removal of Synthetic Substitute from Left Knee Joint, Open Approach (ICD-10-PCS; principal; 2022-03-20 09:27)
DX: T84.033A Mechanical loosening of internal left knee prosthetic joint, initial encounter (principal); I10 Essential (primary) hypertension; E78.5 Hyperlipidemia, unspecified; E66.9 Obesity, unspecified; Z68.41 Body mass index [BMI] 40.0-44.9, adult; R11.2 Nausea with vomiting, unspecified; Y83.8 Other surgical procedures as the cause of abnormal reaction of the patient, or of later complication, without mention of misadventure at the time of the procedure; M17.12 Unilateral primary osteoarthritis, left knee
CPT/HCPCS: 36415; 73560-TC-LT-FY; 80048; 80053; 80061; 83036; 85025; 85027; 87070; 87075; 87102; 87116; 87205; 87206; 87210; 88304-TC; 88305-TC; 88311-TC; 88331-TC; 94760; 97010-GP; 97116-GP; 97163-GP; C1713; C1776